=== PATIENT | female | born 1995 | race Asian ===

== ENCOUNTER 2023-01-18 10:29 | Emergency (ER) | payer BC ==
[2023-01-18 10:41] VITALS: BP 101/63; PULSE 77; RESP 18; TEMP 98.1; BMI 19.4
[2023-01-18] MEDS ORDERED: SODIUM CHLORIDE 0.9% 500 ML INFUS.BAG IV ONE (12:12)
[2023-01-18 12:14] LABS: URINE APPEARANCE Clear; URINE BILIRUBIN Negative (NEGATIVE); URINE COLOR Yellow; URINE GLUCOSE (UA) Negative (NEGATIVE); URINE KETONE 2+ (NEGATIVE); URINE LEUK ESTERASE Trace (NEGATIVE); URINE NITRITE Negative (NEGATIVE); URINE PROTEIN Negative (NEGATIVE); URINE UROBILINOGEN 0.2 mg/dL (0.2-1.0)
== END 2023-01-18 15:43 | disposition home or self-care (01) ==
LOC: JER 10:29
DX: R10.13 Epigastric pain (principal); R10.31 Right lower quadrant pain; K29.70 Gastritis, unspecified, without bleeding
CPT/HCPCS: 74177-TC; 81003; 84703; 87086; 99285-25; Q9967